=== PATIENT | male | born 1965 | race Caucasian/White ===

== ENCOUNTER 2019-04-29 21:33 | Emergency (ER) | payer SELFPAY ==
--- NOTE | 2019-04-29 21:49 | Event Note ---
ED Screening Note Date of service: 04/29/19 Time: 21:43 ED Screening Note: This is a 53 y.o. M. that presents to the ER with pain to left shoulder blade for several weeks. Patient states he was recently diagnosed with multiple myeloma. Current smoker. Denies neuropathy, weakness, or paresthesia. This initial assessment/diagnostic orders/clinical plan/treatment(s) is/are subject to change based on patients health status, clinical progression and re- assessment by fellow clinical providers in the ED. Further treatment and workup at subsequent clinical providers discretion. Patient/guardian urged not to elope from the ED as their condition may be serious if not clinically assessed and managed. Initial orders include:
[2019-04-29 21:52] VITALS: BP 179/79
== END 2019-04-29 21:50 | disposition left against medical advice (07) ==
LOC: ED 21:33
DX: M25.512 Pain in left shoulder (principal); Z53.21 Procedure and treatment not carried out due to patient leaving prior to being seen by health care provider